=== PATIENT | female | born 1990 | race Caucasian/White ===

== ENCOUNTER 2021-02-17 13:32 | Outpatient (CLI) | payer OTHER, SELFPAY ==
--- NOTE | ~2021-02-17 | US_ITS ---
EXAMINATION: US OB transvaginal DATE: 02/17/2021 13:55 INDICATION: Gestational dating TECHNIQUE: Real-time transabdominal and transvaginal obstetric ultrasound. FINDINGS: Comparison to ultrasound dated 09/14/2019 The uterus measures 9.2 x 5.4 x 5.8 cm. There is an intrauterine gestational sac, with pole mikel ntified. The crown rump length measures 0.36 cm, which correlates with a estimated gestational age o f 6 weeks 0 days. heart tones are identified measuring 122 BPM. The ovaries are within normal limits without significant solid or cystic mass. No free fluid in the pelvis. IMPRESSION: 1. SL IUP with an EGA of 6 weeks, 0 days (EDC by current ultrasound of 10/13/2021). Reviewed, dictated and finalized at location B. IMPRESSION: 1. SL IUP with an EGA of 6 weeks, 0 days (EDC by current ultrasound of 10/13/19 22).
== END 2021-02-17 13:33 ==
LOC: MICIMG 13:33
PROVIDERS: PCP Physician Assistant; Visit Provider Obstetrics & Gynecology
DX: Z36.87 Encounter for antenatal screening for uncertain dates (principal); Z3A.01 Less than 8 weeks gestation of pregnancy
CPT/HCPCS: 76817

== ENCOUNTER 2021-03-04 17:39 | Emergency (ER) | payer OTHER, SELFPAY ==
[2021-03-04 17:42] VITALS: BP 135/76; PULSE 94; RESP 18; TEMP 36.6; O2SAT 99
[2021-03-04 17:58] LABS: Basophils Percent Auto 0.4 % (0.2-1.2); Eosinophils Absolute Auto 0.2 K/mm3 (0-0.3); Eosinophils Percent Auto 1.5 % (0-4.4); Hematocrit 38.5 % (37.0-47.0); Hemoglobin 12.5 g/dL (12.0-15.0); Immature Granulocyte Absolute 0.06 K/mm3 (0.00-0.031); Immature Granulocyte Percent A 0.5 % (0-0.5); Lymphocytes Absolute Auto 1.66 K/mm3 (0.9-3.2); Lymphocytes Percent Auto 15.2 % (18.3-44.2); Mean Corpuscular HGB Conc 32.5 g/dl (32-36); Mean Corpuscular Hemoglobin 25.9 pg (26-34); Mean Corpuscular Volume 79.9 fl (80-100); Mean Platelet Volume 10.2 fl (7.4-10.4); Monocytes Absolute Auto 0.6 K/mm3 (0.1-0.6); Monocytes Percent Auto 5.6 % (2.6-8.5); Neutrophils Absolute Auto 8.4 K/mm3 (1.3-6.7); Neutrophils Percent Auto 76.8 % (45.5-73.1); Platelet Count Result 206 k/mm3 (150-375); Red Blood Count 4.82 M/mm3 (4.2-5.4); Red Cell Distribution Width 15.8 % (11.5-14.5); White Blood Count 10.9 K/mm3 (4.5-10.0)
--- NOTE | 2021-03-04 19:43 | ED.PREGNANCY ---
HPI - General Chief complaint: ASSISTANT CENTER DIRECTOR Stated complaint: 8weeks preg, bleeding Time Seen by Provider: 03/04/21 19:10 History of Present Illness HPI Narrative: 30 yo female presents to the ED for vaginal bleeding. She is approximately 8 weeks . She has experienced light vaginal bleeding today. At first light spotting then noted a samll amount of blood in the toilet. Seems to have stopped at this time. No tissue or clots. She has had this previously in this . She is a patient of Dr. Majano. No pain, discharge, dysuria. Review of Systems Review of Systems: All systems reviewed & are unremarkable except as noted in HPI and below Constitutional: Constitutional: Denies fever(s) Cardiovascular: Cardiovascular: Denies chest pain Respiratory: Respiratory: Denies dyspnea Gastrointestinal: Gastrointestinal: Denies abdominal pain Genitourinary: Genitourinary: Denies dysuria and Denies vaginal discharge Neurologic: Reports system reviewed and no additional complaints, except as documented [facility] Social History Social History (Updated 03/10/21 @ 15:37 by Eduardo Sims MD) Smoking status: Never smoker Exam Const: General: healthy appearing, no acute distress and alert Orientation/consciousness: patient oriented x3 HENMT: Head: normal to inspection Neck: Neck: normal visual inspection Resp: Effort & Inspection: normal respiratory effort Auscultation: clear to auscultation bilaterally, no rales, no rhonchi and no wheezes Cardio: Jugular venous distension: no JVD Rate: regular rate Rhythm: regular rhythm Heart sounds: no murmurs GI: Inspection: non-distended GI Palp: Yes Soft to palpation and No Tenderness to palpation present (GI) Skin: General skin exam: normal color Neuro: General: patient oriented x3 and moves all extremities Speech: normal speech Extrem: General: normal to inspection Psych: Appearance: well kempt Affect: normal affect Course Vital Signs Vital signs: Vital Signs Temperature 36.6 C 03/04/21 17:42 Pulse Rate 94 03/04/21 17:42 Respiratory Rate 18 03/04/21 17:42 Blood Pressure 135/76 03/04/21 17:42 Pulse Oximetry 99 03/04/21 17:42 Temperature 36.8 C 03/04/21 21:19 Pulse Rate 79 03/04/21 21:19 Respiratory Rate 18 03/04/21 21:19 Blood Pressure 121/70 03/04/21 21:19 Pulse Oximetry 99 03/04/21 21:19 Procedures Other Procedure Procedure 1: Other Procedure: Bedside Ultrasound Grossly normal 8 week FHR 172 MDM - OB/Uterine Contractions MDM Narrative Medical decision making narrative: Grossly normal US. Bleeding minimal. Dr. Majano contacted and will see the patient in follow-up Medical Records Attestation: I reviewed the patient's medical records. Lab Data Attestation: I reviewed the patient's lab results. Result diagrams: 03/04/21 17:51 Labs: Lab Results 03/04/21 03/04/21 03/04/21 Range/Units 17:51 17:51 17:51 WBC 10.9 H (4.5-10.0) K/mm3 RBC 4.82 (4.2-5.4) M/mm3 Hgb 12.5 (12.0-15.0) g/dL Hct 38.5 (37.0-47.0) % MCV 79.9 L (80-100) fl MCH 25.9 L (26-34) pg MCHC 32.5 (32-36) g/dl RDW 15.8 H (11.5-14.5) % Plt Count 206 (150-375) k/mm3 MPV 10.2 (7.4-10.4) fl Immature Gran % (Auto) 0.5 (0-0.5) % Neut % (Auto) 76.8 H (45.5-73.1) % Lymph % (Auto) 15.2 L (18.3-44.2) % [place] % (Auto) 5.6 (2.6-8.5) % Eos % (Auto) 1.5 (0-4.4) % Baso % (Auto) 0.4 (0.2-1.2) % Lymph # (Auto) 1.66 (0.9-3.2) K/mm3 [place] # (Auto) 0.6 (0.1-0.6) K/mm3 Eos # (Auto) 0.2 (0-0.3) K/mm3 Baso # (Auto) 0.0 (0.0-0.1) K/mm3 Abs Immat Gran (auto) 0.06 H (0.00-0.031) K/mm3 Absolute Neuts (auto) 8.4 H (1.3-6.7) K/mm3 Absolute Nucleated RBC 0.0 (0.0-0.012) K/mm3 Nucleated RBC % 0.0 (0.0-0.2) % Beta HCG, Quant 23910.00 mIU/ML Blood Type O Positive Antibody Screen Negative Screen TNP B
[2021-03-04 20:01] VITALS: BP 127/74; PULSE 81; RESP 25
[2021-03-04 21:19] VITALS: BP 121/70; PULSE 79; RESP 18; TEMP 36.8; O2SAT 99
== END 2021-03-04 21:15 | disposition home or self-care (01) ==
PROVIDERS: Physician Assistant; Emergency Provider Emergency Medicine; PCP Physician Assistant
DX: O20.9 Hemorrhage in early pregnancy, unspecified (principal); Z3A.08 8 weeks gestation of pregnancy
CPT/HCPCS: 36415; 84702; 85025; 85461; 99284

== ENCOUNTER → 2021-03-09 14:59 | Outpatient (CLI) | payer OTHER, SELFPAY ==
--- NOTE | ~2021-03-09 | US_ITS ---
EXAMINATION: US OB <= 14 weeks fetus DATE: 03/09/2021 15:23 INDICATION: Spotting during first trimester TECHNIQUE: Real-time pelvic transabdominal and transvaginal ultrasound was performed. COMPARISON: 02/17/2021 FINDINGS: The uterus measures 11.5 x 7 x 6.9 cm. There is an intrauterine gestational sac. There is a 15 mm x 3 mm x 8 mm hypoechoic area adjacent to the posterior aspect of the gestational sac. A yolk sac is identified. heart motion is identified measuring 179 beats per minute (bpm) by M-mode D oppler. The crown rump length measures 2.5 cm , which correlates with an estimated gestational age of 9 weeks and 1 day(s) (+/-) 6 day(s). The left ovary is not visualized however no left adnexal abnormality is seen. The right ovary measure s 2.9 x 2.4 x 2.5 cm. There is normal vascular flow in the right ovary. There is no free fluid in the pelvis. IMPRESSION: 1. Live intrauterine with an estimated gestational age of 9 weeks and 1 day(s) (+/-) 6 day( s) and an estimated delivery date of 10/11/2021. 2. Small subchorionic hemorrhage. Reviewed, dictated and finalized at location B. IMPRESSION: 1. Live intrauterine with an estimated gestational age of 9 weeks and 1 day(s) (+/-) 6 day(s) and an estimated delivery date of 10/11/2021. 2. Small subchorionic hemorrhage.
== END ==
PROVIDERS: Visit Provider Obstetrics & Gynecology
DX: O26.851 Spotting complicating pregnancy, first trimester (principal); Z3A.09 9 weeks gestation of pregnancy
CPT/HCPCS: 76801

== ENCOUNTER 2021-04-06 14:37 | Outpatient (CLI) | payer OTHER, SELFPAY ==
--- NOTE | ~2021-04-06 | US_ITS ---
EXAMINATION: US OB <= 14 weeks fetus DATE: 04/06/2021 14:56 INDICATION: Subchorionic hematoma, first trimester TECHNIQUE: Real-time pelvic transabdominal and transvaginal ultrasound was performed. COMPARISON: 03/09/2021 FINDINGS: The uterus measures 12.8 x 9 x 10.1 cm. There is an intrauterine gestational sac. No persi stent subchorionic hematoma is identified. heart motion is identified measuring 161 beats per m inute (bpm) by M-mode Doppler. The crown rump length measures 7.1 cm , which correlates with an estimated gestational age of 13 weeks and 2 day(s) (+/-) 8 day(s). The ovaries are not visualized however no adnexal abnormality is seen. There is no free fluid in the pelvis. IMPRESSION: 1. Live intrauterine with an estimated gestational age of 13 weeks and 2 day(s) (+/-) 8 day (s) and an estimated delivery date of 10/10/2021. 2. No subchorionic hematoma identified. Reviewed, dictated and finalized at location A. IMPRESSION: 1. Live intrauterine with an estimated gestational age of 13 weeks an d 2 day(s) (+/-) 8 day(s) and an estimated delivery date of 10/10/2021. 2. No subchorionic hematoma identified.
== END 2021-04-06 14:38 ==
LOC: MICIMG 14:38
PROVIDERS: Visit Provider Obstetrics & Gynecology
DX: O36.8910 Maternal care for other specified fetal problems, first trimester, not applicable or unspecified (principal); Z3A.00 Weeks of gestation of pregnancy not specified
CPT/HCPCS: 76801

== ENCOUNTER 2021-05-16 16:00 | Outpatient (CLI) | payer OTHER, SELFPAY ==
--- NOTE | ~2021-05-16 | US_ITS ---
EXAMINATION: US OB /maternal detail DATE: 05/16/2021 16:42 INDICATION: survey TECHNIQUE: Multiple obstetric sonographic images performed. FINDINGS: Comparison to multiple prior studies sequentially, with oldest reviewed study dated 2020. There is a single living fetus in vertex presentation. The placenta is anterior without placenta pre via. Placental margin is 7.2 cm to the cervix. Amniotic fluid volume is subjectively normal. cardiac activity and movement is noted with a heart rate of 143 beats per minute. The following anatomy was identified as normal: 4 chamber heart 3 vessel cord cord insertion kidneys urinary bladder stomach spine diaphragm ventricles cisterna magna cerebellum The following biometric data were obtained: BPD: 44mm corresponds to gestational age 19 weeks 3 days. Head circumference: 163 mm corresponds to gestational age 19 weeks 0 days. Abdominal circumference: 136 mm corresponds to gestational age 19 weeks 1 days. Femur length: 28 mm corresponds to gestational age 18 weeks 4 days. Head circumference to abdominal circumference ratio: 1.2 (normal range for expected gestational age i s 1.09-1.26). Estimated weight: 262 grams +/- 39 grams using Hadlock method. IMPRESSION: 1: Single living intrauterine with an estimated gestational age of 18weeks 6days by initial ultrasound measurements, with an EDC of 10/11/2021 in vertex presentation. 2. Normal survey. Reviewed, dictated and finalized at location A. IMPRESSION: 1: Single living intrauterine with an estimated gestational age of 18 weeks 6days by initial ultrasound measurements, with an EDC of 10/11/2021 in ve rtex presentation. 2. Normal survey.
== END 2021-05-16 16:01 ==
PROVIDERS: Visit Provider Obstetrics & Gynecology Gynecology
DX: Z36.89 Encounter for other specified antenatal screening (principal); Z3A.18 18 weeks gestation of pregnancy
CPT/HCPCS: 76805

== ENCOUNTER 2021-08-09 12:13 | Observation (INO) | payer OTHER, SELFPAY ==
[2021-08-09] VITALS (7 sets, daily range): BP systolic 105–113; BP diastolic 60–65; PULSE 92–101; BMI 35.6
--- NOTE | 2021-08-09 12:13 | OBADM ---
This patient, Zakia Laughlin, admitted to the OB room OB Post 112 for observation. Patient/family oriented to hospital policies and general routines including ID bracelet, bed and alarms, visiting hours, pain management, procedures, bathroom and other care routines, personal items, smoking policy, room service/diet, and visiting hours. Patient/Family are encouraged to report perceived risks to care and to ask questions if they do not understand what they are told or what they should do.
[2021-08-09 14:12] LABS: Add Urine Microscopic? YES; Appearance Urine Cloudy (Clear); Bacteria Urine Trace /hpf; Bilirubin Urine Negative (Negative); Blood Urine 2+ (Negative); Color Urine Yellow (Yellow); Glucose Urine UA Negative (Negative); Ketones Urine Negative (Negative); Leukocyte Esterase Ur 3+ LEU/UL (NEGATIVE); Mucus Urine Rare /lpf; Nitrate Urine Negative (Negative); Protein Urine Negative (Negative); RBC Urine 21-50 /hpf (0-2); Specific Grav Ur 1.014 (1.001-1.035); Squamous Epithelial Cell Urine Many /hpf (Few); Urobilinogen Urine Negative mg/dL (<2.0); WBC Clumps Urine Present /HPF; WBC Urine >75 /hpf (0-3)
[2021-08-09 15:40] LABS: Fetal Fibronectin Positive
[2021-08-09] MEDS: TERBUTALINE SULFATE 1 MG/ML VIAL 0.25 MG SUB-Q (17:01)
[2021-08-09] MEDS: cefTRIAXone 1 GM VIAL IM (17:24)
--- NOTE | 2021-08-18 13:05 | P.PNOB_ITS ---
OB - Triage/Final Diagnosis Visit Information Comments/Additional reasons for admission: I have assessed the risk for this patient, Zakia Laughlin, and determined that she would benefit from observation care. Evaluation Laboratory results: Laboratory Tests 08/09/21 08/09/21 13:40 14:59 Urine Color Yellow Urine Appearance Cloudy H Urine pH 5.0 Ur Specific [place] 1.014 Urine Protein Negative Urine Glucose (UA) Negative Urine Ketones Negative Ur Blood (Man) 2+ H Urine Nitrate Negative Urine Bilirubin Negative Urine Urobilinogen Negative Ur Leukocyte Esterase 3+ H Urine RBC 21-50 H Urine WBC >75 H Urine WBC Clumps Present H Ur Squamous Epith Cells Many H Urine Bacteria Trace Urine Mucus Rare Fibronectin Positive Final Diagnosis (1) contractions: Code(s): O47.00 - False labor before 37 completed weeks of gestation, unspecified trimester Status: Acute
== END 2021-08-09 18:38 | disposition home or self-care (01) ==
PROVIDERS: Admitting Provider Obstetrics & Gynecology; Visit Provider Obstetrics & Gynecology
DX: O47.03 False labor before 37 completed weeks of gestation, third trimester (principal); Z3A.31 31 weeks gestation of pregnancy
CPT/HCPCS: 81001; 82731; 87086; 96372; A9270; G0378; G0379; J0696; J3105

== ENCOUNTER 2021-08-31 15:36 | Outpatient (RCR) | payer OTHER, SELFPAY ==
[2021-08-31 16:07] VITALS: BP 107/60; PULSE 90
== END 2021-10-13 20:54 | disposition home or self-care (01) ==
LOC: ANHOBOP 15:36
PROVIDERS: Visit Provider Obstetrics & Gynecology Gynecology
DX: O24.419 Gestational diabetes mellitus in pregnancy, unspecified control (principal); Z3A.34 34 weeks gestation of pregnancy
CPT/HCPCS: 59025

== ENCOUNTER 2021-09-04 20:39 | Observation (INO) | payer OTHER, SELFPAY ==
[2021-09-04] VITALS (11 sets, daily range): BP systolic 102–115; BP diastolic 59–72; PULSE 82–101; RESP 16; TEMP 37.1; O2SAT 97
--- NOTE | 2021-09-04 21:29 | OBADM ---
This patient, Zakia Laughlin, admitted to the OB room OB Post 117 for observation. Patient reports possible leaking of fluids and contractions. Patient/family oriented to hospital policies and general routines including ID bracelet, bed and alarms, visiting hours, pain management, procedures, bathroom and other care routines, personal items, smoking policy, room service/diet, and visiting hours. Patient/Family are encouraged to report perceived risks to care and to ask questions if they do not understand what they are told or what they should do.
--- NOTE | 2021-09-07 08:53 | PM.OBTRLD ---
OB - Triage/Final Diagnosis Visit Information Comments/Additional reasons for admission: I have assessed the risk for this patient, Zakia Laughlin, and determined that she would benefit from observation care. Final Diagnosis (1) contractions: Code(s): O47.00 - False labor before 37 completed weeks of gestation, unspecified trimester Status: Acute
== END 2021-09-04 23:45 | disposition home or self-care (01) ==
PROVIDERS: Admitting Provider Obstetrics & Gynecology; PCP Physician Assistant; Visit Provider Obstetrics & Gynecology
DX: O47.03 False labor before 37 completed weeks of gestation, third trimester (principal); Z3A.35 35 weeks gestation of pregnancy
CPT/HCPCS: G0378; G0379

== ENCOUNTER 2021-10-02 05:53 | Inpatient (IN) | payer OTHER, SELFPAY ==
[2021-10-02] VITALS (96 sets, daily range): BP systolic 77–137; BP diastolic 44–87; PULSE 81–115; RESP 16; TEMP 36.3–37.1; O2SAT 95–100; BMI 35.3
--- NOTE | 2021-10-02 06:31 | LDADM ---
This patient, Zakia Laughlin, was admitted to Labor/Delivery/Recovery 107 on 10/02/21 at 05:53. Plans for labor, pain management and were discussed with patient. Patient/family oriented to hospital policies and general routines including ID bracelet, bed and alarms, visiting hours, pain management, procedures, bathroom and other care routines, personal items, smoking policy, room service/diet and guest tray routines, security routines, and visiting hours. Patient/Family are encouraged to report perceived risks to care and to ask questions if they do not understand what they are told or what they should do. See OBIX for further documentation.
[2021-10-02 06:44] LABS: Glucose Point of Care 139 mg/dl (65-105)
[2021-10-02] MEDS: LACTATED RINGERS 1,000 ML 125 ML IV CONT ×2 (06:49→10:06)
[2021-10-02] MEDS: OXYTOCIN 30 UNITS/NS 500 ML 30 UNITS/500 ML BAG IV CONT (06:49)
[2021-10-02 06:50] LABS: Basophils Absolute Auto 0.1 K/mm3 (0.0-0.1); Basophils Percent Auto 0.6 % (0.2-1.2); Eosinophils Absolute Auto 0.1 K/mm3 (0-0.3); Hematocrit 33.8 % (37.0-47.0); Hemoglobin 10.7 g/dL (12.0-15.0); Immature Granulocyte Absolute 0.21 K/mm3 (0.00-0.031); Immature Granulocyte Percent A 1.8 % (0-0.5); Lymphocytes Absolute Auto 1.39 K/mm3 (0.9-3.2); Lymphocytes Percent Auto 12.2 % (18.3-44.2); Mean Corpuscular HGB Conc 31.7 g/dl (32-36); Mean Corpuscular Hemoglobin 25.2 pg (26-34); Mean Corpuscular Volume 79.5 fl (80-100); Mean Platelet Volume 10.4 fl (7.4-10.4); Monocytes Absolute Auto 0.7 K/mm3 (0.1-0.6); Monocytes Percent Auto 6.3 % (2.6-8.5); Neutrophils Absolute Auto 8.9 K/mm3 (1.3-6.7); Neutrophils Percent Auto 78.1 % (45.5-73.1); Platelet Count Result 167 k/mm3 (150-375); Red Blood Count 4.25 M/mm3 (4.2-5.4); Red Cell Distribution Width 16.1 % (11.5-14.5); White Blood Count 11.4 K/mm3 (4.5-10.0)
--- NOTE | 2021-10-02 09:02 | WPDANESEPP ---
Anes - Eval Pre Procedure Procedure: labor epidural Date/Time: 10/02/21 09:02 Surgeon: norman Pre Op Diagnosis: IOL Patient Data Age: 31 Gender: F Height: 1.8 m Weight: 115 kg Last Vital Signs Temp 37.0 C 10/02/21 07:00 Pulse 103 H 10/02/21 08:31 BP 129/74 10/02/21 08:31 Allergies Allergy/AdvReac Type Severity Reaction Status Date / Time No Known Allergies Allergy Verified 08/09/21 15:00 Home Medications Medication Instructions Recorded Confirmed Type Humulin N NPH U-100 Insulin 62 unit SUBCUT HS 08/31/21 10/02/21 History PNV cmb#95-ferrous fumarate-FA 1 tablet PO HS 08/31/21 09/14/21 History [] Laboratory Tests 10/02/21 10/02/21 10/02/21 06:33 06:38 06:39 WBC 11.4 K/mm3 H K/mm3 (4.5-10.0) RBC 4.25 M/mm3 M/mm3 (4.2-5.4) Hgb 10.7 g/dL L g/dL (12.0-15.0) Hct 33.8 % L % (37.0-47.0) MCV 79.5 fl L fl (80-100) MCH 25.2 pg L pg (26-34) MCHC 31.7 g/dl L g/dl (32-36) RDW 16.1 % H % (11.5-14.5) Plt Count 167 k/mm3 k/mm3 (150-375) MPV 10.4 fl fl (7.4-10.4) Immature Gran % (Auto) 1.8 % H % (0-0.5) Neut % (Auto) 78.1 % H % (45.5-73.1) Lymph % (Auto) 12.2 % L % (18.3-44.2) [place] % (Auto) 6.3 % % (2.6-8.5) Eos % (Auto) 1.0 % % (0-4.4) Baso % (Auto) 0.6 % % (0.2-1.2) Lymph # (Auto) 1.39 K/mm3 K/mm3 (0.9-3.2) [place] # (Auto) 0.7 K/mm3 H K/mm3 (0.1-0.6) Eos # (Auto) 0.1 K/mm3 K/mm3 (0-0.3) Baso # (Auto) 0.1 K/mm3 K/mm3 (0.0-0.1) Abs Immat Gran (auto) 0.21 K/mm3 H K/mm3 (0.00-0.031) Absolute Neuts (auto) 8.9 K/mm3 H K/mm3 (1.3-6.7) Absolute Nucleated RBC 0.0 K/mm3 K/mm3 (0.0-0.012) Nucleated RBC % 0.0 % % (0.0-0.2) POC Capillary Glucose 139 mg/dl H mg/dl (65-105) RPR Pending Blood Type Antibody Screen 10/02/21 06:39 WBC RBC Hgb Hct MCV MCH MCHC RDW Plt Count MPV Immature Gran % (Auto) Neut % (Auto) Lymph % (Auto) [place] % (Auto) Eos % (Auto) Baso % (Auto) Lymph # (Auto) [place] # (Auto) Eos # (Auto) Baso # (Auto) Abs Immat Gran (auto) Absolute Neuts (auto) Absolute Nucleated RBC Nucleated RBC % POC Capillary Glucose RPR Blood Type O Positive Antibody Screen Negative Patient hx anesthesia problems: none Family hx anesthesia problems: none Results Review: All pre-operative results and documents have been reviewed as part of the pre-operative evaluation. [facility] Past Medical History Medical History (Updated 08/18/21 @ 13:05 by Michael Majano MD) contractions Family History Family History (Updated 09/14/21 @ 12:05 by Yara Hicks RN) Father Diabetes mellitus Mother Diabetes mellitus Social History Social History (Updated 03/10/21 @ 15:37 by Eduardo Sims MD) Smoking status: Former smoker Substance use: never Spiritual care concerns: No Exam Day of Procedure 10/02/21 09:02
--- NOTE | 2021-10-02 10:02 | WPDOBADMIT ---
Obstetrics - Admit Note Admission Note: record reviewed. No pertinent additions to the history and/or any subsequent changes in the physical findings that are not consistent with the expected course of the were found. Additions to the history and/or subsequent changes in the physical findings follow. Here for MIL. Cervix 4/80/-2 AROM with clear fluid
[2021-10-02 10:05] LABS: Glucose Point of Care 73 mg/dl (65-105)
[2021-10-02 10:55] LABS: Rapid Plasma Reagin Non-Reactive (NonReactive)
--- NOTE | 2021-10-02 13:58 | PM.OBPRVD ---
OB - Delivery Note Procedure Delivery date: 10/02/21 Procedure: events: Gestational Diabetes and Labor Induction Intrapartal events: None Induction method: AROM and per pitocin protocol Delivery monitor: external FHT and internal uterine Route of delivery: Laceration Description: Periurethral Delivery repair: vicryl (4-0) Specimen: No Quantitative Blood Loss (ml): 100 Anesthesia type: Epidural Disposition: floor Baby Date of : 10/02/21 Weeks of gestation at delivery: 39 gender: Female Weight (pounds): 7 Weight (ounces): 3 presentation: vertex position: Right Occiput Anterior Placenta delivery description: Spontaneous cord vessel description: 3 Vessels and Nuchal Cord score one minute: 9 score five minutes: 9
--- NOTE | 2021-10-02 13:59 | PM.OBDSVD ---
DS: Admitting Diagnosis Discharge Date 10/03/21 Admitting Diagnosis MIL for GDMA2 at 39 wks DS: Discharge Diagnosis Discharge Diagnosis (1) (normal spontaneous vaginal delivery): Code(s): O80 - Encounter for full-term uncomplicated delivery Status: Acute OB - DS: Summary OB Procedures : NST and Ultrasound OB Procedures Intrapartum: Spontaneous Vag Delivery OB Procedures: : None Peripartum Data Infant Delivery Method: Natural Vaginal Laceration Description: Periurethral complications: none Status at Discharge Functional status at discharge: independent ambulation Overall status at discharge: patient is progressing back to baseline Time Spent with Patient Time attestation: Total time spent providing and/or coordinating discharge services: DS: Data Data Completed and Pending Labs on day of discharge: Labs from last 24 hours 10/02/21 10/02/21 10/02/21 10:03 06:39 06:39 WBC RBC Hgb Hct MCV MCH MCHC RDW Plt Count MPV Immature Gran % (Auto) Neut % (Auto) Lymph % (Auto) [place] % (Auto) Eos % (Auto) Baso % (Auto) Lymph # (Auto) [place] # (Auto) Eos # (Auto) Baso # (Auto) Abs Immat Gran (auto) Absolute Neuts (auto) Absolute Nucleated RBC Nucleated RBC % POC Capillary Glucose 73 RPR Non-reactive Blood Type O Positive Antibody Screen Negative 10/02/21 10/02/21 06:38 06:33 WBC 11.4 H RBC 4.25 Hgb 10.7 L Hct 33.8 L MCV 79.5 L MCH 25.2 L MCHC 31.7 L RDW 16.1 H Plt Count 167 MPV 10.4 Immature Gran % (Auto) 1.8 H Neut % (Auto) 78.1 H Lymph % (Auto) 12.2 L [place] % (Auto) 6.3 Eos % (Auto) 1.0 Baso % (Auto) 0.6 Lymph # (Auto) 1.39 [place] # (Auto) 0.7 H Eos # (Auto) 0.1 Baso # (Auto) 0.1 Abs Immat Gran (auto) 0.21 H Absolute Neuts (auto) 8.9 H Absolute Nucleated RBC 0.0 Nucleated RBC % 0.0 POC Capillary Glucose 139 H RPR Blood Type Antibody Screen Discharge Plan Discharge Attending physician on discharge: Tere Wagonerarging Clinician: Tere Wagoner Anticipated Discharge Date/Time: 10/03/21 14:00 Patient Disposition: Home, Self-Care Activity: may shower and pelvic rest Diet: regular Patient Instructions: Antibiotic Form Stand Alone Forms: General Discharge Information Follow-up/Referrals: Tere Wagoner MD [Physician] - 6 Weeks Discharge Medications: Continued PNV cmb#95-ferrous fumarate-FA [] 28 mg iron- 800 mcg Tablet 1 tablet PO HS RF: 0 Discontinued Humulin N NPH U-100 Insulin 100 unit/mL Suspension 62 unit SUBCUT HS RF: 0 Date of admission: 10/02/21 05:53 Primary Care Provider: Araceli,José Robb Admitting Provider: Tere Wagoner Attending physician on admission: Tere Wagoner Condition: Stable Care Plan Goals: for control plans condoms until 's vasectomy done
[2021-10-02] MEDS: OXYTOCIN 30 UNITS/NS 500 ML 30 UNITS/500 ML BAG 125 UNITS IV CONT (14:21)
[2021-10-02] MEDS: WITCH HAZEL 40 PADS 1 PAD TOPICAL (16:06)
--- NOTE | 2021-10-02 16:25 | OBPPTRN ---
Patient transferred to post room #284 via wheelchair. Support person present. Oriented to unit, room, information board, rooming in, admission packet and security measures. Patient verbalizes understanding. with patient.
[2021-10-02] MEDS: IBUPROFEN SUSPENSION 200 MG/10 ML UDC 600 MG PO (17:06)
[2021-10-03] MEDS: IBUPROFEN SUSPENSION 200 MG/10 ML UDC 600 MG PO ×3 (00:03→15:23)
[2021-10-03] MEDS: ACETAMINOPHEN ELIXIR 325 MG/10.15 ML UDC 650 MG PO ×2 (03:36→11:55)
[2021-10-03 03:45] VITALS: BP 103/60; PULSE 80; RESP 16; TEMP 36.6; O2SAT 97
[2021-10-03 05:17] LABS: Hematocrit 31.2 % (37.0-47.0)
--- NOTE | 2021-10-03 07:20 | PM.OBPNVD ---
OB - PN: Subj Subjective Date/time seen: 10/03/21 07:20 Patient comments: no complaints and pain well controlled baby status: doing well OB - PN: Obj Data Labs CBC & Chem 7: 10/03/21 03:49 Labs: Laboratory Results - last 24 hr 10/02/21 10/02/21 10/02/21 06:39 06:39 10:03 Hgb Hct POC Capillary Glucose 73 RPR Non-reactive Blood Type O Positive Antibody Screen Negative 10/03/21 03:49 Hgb 10.0 L Hct 31.2 L POC Capillary Glucose RPR Blood Type Antibody Screen OB - PN A/P Plan day: 1 Plan: routine care, discharge home, follow up 6 weeks and other (plans condoms until vasectomy) Time Spent With Patient Time: Total time spent is greater than 50% in coordination of care (as documented) at patient's floor/unit and/or counseling patient: Exam : Bimanual exam- vagina & uterus: other (Uterus firm, nt @U)
[2021-10-03] MEDS: DOCUSATE SODIUM LIQ 100 MG/10 ML UDC PO (07:22)
[2021-10-03 08:10] VITALS: BP 96/43; PULSE 75; RESP 16; TEMP 36.2; O2SAT 99
--- NOTE | 2021-10-03 09:41 | WPDANLDPN2 ---
Anes-Prog Note L&D Date/Time: 10/03/21 09:41 Comfortable throughout: labor and delivery Neuraxial method: epidural Epidural/Spinal procedure site: clean & non-tender Neuro status: Neuro function grossly intact. Cardiovascular status: normal Respiratory status: normal Airway patency: baseline Mental status: baseline Post-Op hydration status: normal Vital Signs: Last Vital Signs Temp 36.2 C L 10/03/21 08:10 Pulse 75 10/03/21 08:10 Resp 16 10/03/21 08:10 BP 96/43 L 10/03/21 08:10 Pulse Ox 99 10/03/21 08:10 Pain score (VAS): 0 Post-procedural complaints: none Patient feedback: Patient satisfied with anesthetic care.
--- NOTE | 2021-10-03 09:58 | PC.NURSE ---
0805 - Introductions were made and mother led the discussion of her desires to feeding her baby. Reviewed handwashing to prevent infection before and after taking care of her baby. Mother verbalizes she is able to independently latch infant but has had difficult with this last feeding. Discussed how to watch for early feeding cues, place skin to skin, then feeding baby when infant is ready or every 2-3 hours. Reviewed positioning/alignment with the use of the mom and baby guide. Encouraged mother with skin to skin/to the breast to the left breast in side-lying position using nipple to nose with asymmetrical 140-degree latch. She denies any nipple discomfort. Reviewed there is to be no pain with , how to detach from the breast, visuals to watch for to confirm effective . Reviewed effective latching with resources tool/handout/mom and baby guide. Nipple tenderness from previous latches is relieved with improving positioning and effective latching. Use of warm, wet compress to nipples and air dry for improved comfort. was able to maintain effective latch. Mother is feeding as needed to meet requirements. Mother has verbalized understanding watching for feeding cues or waking techniques to feed infant. Mother voiced understanding to feed when she sees feeding cues, 8-12 times in 24 hours approximately every 2-3 hours from the start of the last feeding or she has discomfort with nursing. Reported to primary RN.
[2021-10-03 13:43] VITALS: BP 101/55; PULSE 88; RESP 16; TEMP 37; O2SAT 97
[2021-10-04 12:52] VITALS: BP 124/61; PULSE 68; RESP 20; TEMP 36.9; O2SAT 100
== END 2021-10-03 16:14 | disposition home or self-care (01) | DRG 807 ==
LOC: ANHLDR 14:00 → ANHOB2 16:26
PROVIDERS: Admitting Provider Obstetrics & Gynecology Gynecology; PCP Physician Assistant; Visit Provider Obstetrics & Gynecology Gynecology
DX: O24.429 Gestational diabetes mellitus in childbirth, unspecified control (principal); Z37.0 Single live birth; O71.82 Other specified trauma to perineum and vulva; O69.81X0 Labor and delivery complicated by cord around neck, without compression, not applicable or unspecified; O76 Abnormality in fetal heart rate and rhythm complicating labor and delivery; Z3A.39 39 weeks gestation of pregnancy
CPT/HCPCS: 36415; 82948; 85014; 85018; 85025; 86592; 86850; 86900; 86901; A9270; J2590; J2795; J7120

== ENCOUNTER 2024-04-01 18:47 | Emergency (ER) | payer OTHER, SELFPAY ==
--- NOTE | 2024-04-01 18:52 | ED.ABDPAIN ---
HPI - Abdominal Pain General Chief Complaint: Abdominal Pain Stated Complaint: R LOWER ABD PAIN Time Seen by Provider: 04/01/24 19:00 Source: patient and RN notes reviewed Mode of arrival: ambulatory Limitations: no limitations History of Present Illness HPI narrative: 34-year-old female presents with concern for right lower quadrant abdominal pain that started today. She reports nausea without vomiting. Reports normal bowel movements. Reports her last menstrual period was 3 weeks ago. She reports pain is exacerbated when she lays on her left side. She reports she has to put pressure on the area to ease the pain. She denies fever MD elicited complaint: abdominal pain Related Data Home Medications Medication Instructions Recorded Confirmed vit no.95-ferrous 1 tablet PO HS 08/31/21 09/14/21 fumarate 28 mg-folic acid 800 mcg tablet () Allergies Allergy/AdvReac Type Severity Reaction Status Date / Time No Known Allergies Allergy Verified 04/01/24 19:09 Review of Systems Review of Systems: CONSTITUTIONAL: Denies malaise, chills, sweats, or fever. GASTROINTESTINAL: Reports right lower quadrant abdominal pain, nausea. Denies vomiting, diarrhea, bloody, or mucous stools. GENITOURINARY: Denies dysuria or hematuria. MUSCULOSKELETAL: Denies myalgia. All systems reviewed & are unremarkable except as noted in HPI and below PMFSH Past Medical History Medical History (Updated 04/01/24 @ 19:12 by Hina Branch NP) contractions Family History Family History (Updated 09/14/21 @ 12:05 by Yara Hicks, ROSA) Father Diabetes mellitus Mother Diabetes mellitus Social History Social History (Updated 03/10/21 @ 15:37 by Eduardo Sims MD) Smoking status: Former smoker Substance use: never Spiritual care concerns: No Comments At time of signature, agree with nursing past medical, surgical, social and family history. There is no relevant family history pertinent to the presenting complaint Exam Narrative: GENERAL: Appears uncomfortable and in no acute distress. HEAD: Normocephalic, atraumatic. EYES: PERRLA, conjunctivae clear ENT: Nares clear. Mucous membranes moist. NECK: Supple. No lymphadenopathy CHEST: Speaks in full sentences. No respiratory distress. HEART: Regular rate and rhythm. ABDOMEN: Soft, obese, nondistended, right lower quadrant tenderness with guarding SKIN: Warm, dry, no rash. NEURO: Alert and oriented x3. PSYCH: Normal mood and affect Course Course Emergency Course: Patient is aware of, understands and agrees to be transferred to the emergency. Patient agrees to proceed directly to the emergency department. Portions of this record may have been created with voice recognition software Level of Care: Express Care Visit Vital Signs Vital signs: Reviewed. Transfer Transfered to: [place] Transportation: Other (Private vehicle) Transfer rationale: Abdominal pain Accepting physician: Dr Xiong MDM - Abdominal Pain MDM Narrative Medical decision making narrative: Patient's symptoms and exam warrant further evaluation in the emergency room Differential Diagnosis Differential diagnosis: Likely abdominal pain, acute appendicitis, constipation and diverticulitis Critical Care Time Critical Care Time Critical Care Time: No Discharge Plan Discharge Clinical Impression: Abdominal pain, right lower quadrant Patient Disposition: Acute Care Hospital Condition: Stable Prescriptions: No Action PNV cmb#95-ferrous fumarate-FA [] 28 mg iron- 800 mcg Tablet 1 tablet PO HS Follow-up/Referrals: Avril,Payton Sloan APRN [Primary Care Provider] - Time of Disposition: 19:12
[2024-04-01 18:55] VITALS: BP 114/83; PULSE 136; RESP 16; TEMP 36.8; O2SAT 100
== END 2024-04-01 19:14 | disposition short-term general hospital (02) ==
PROVIDERS: Emergency Provider Nurse Practitioner; PCP Nurse Practitioner Family
DX: R10.31 Right lower quadrant pain (principal); Z87.891 Personal history of nicotine dependence
CPT/HCPCS: 99212; G0463

== ENCOUNTER 2024-04-01 19:37 | Emergency (ER) | payer OTHER, SELFPAY ==
[2024-04-01] VITALS (8 sets, daily range): BP systolic 112–144; BP diastolic 70–86; PULSE 118–136; RESP 14–20; TEMP 36.8–38.7; O2SAT 99–100
--- NOTE | ~2024-04-01 | US_ITS ---
EXAMINATION: US pelvic complete DATE: 04/01/2024 22:14 INDICATION: RLQ pain, neg CT, r/o torison TECHNIQUE: Multiple transabdominal and endovaginal sonographic images of the pelvis were obtained. COMPARISON: CT abdomen pelvis, same date FINDINGS: Uterus: 9.7 x 4.7 x 5.8 cm. Endometrial complex measures 7 mm. Right Ovary: 4.6 x 2.3 x 3.0 cm. Vascular flow is present. 2 cm simple cyst or dominant follicle. Left Ovary: 3.4 x 1.4 x 2.3 cm. Vascular flow is present. No adnexal mass. There is no free fluid in the pelvis. IMPRESSION: Normal pelvic sonogram findings. Reviewed, dictated and finalized at location K.
--- NOTE | ~2024-04-01 | CT_ITS ---
EXAMINATION: CT abdomen pelvis w con DATE: 04/01/2024 21:15 INDICATION: RUQ pain nausea TECHNIQUE: Computed tomography (CT) of the abdomen and pelvis was performed with 100 mL Omnipaque-350 intravenous contrast. Automated exposure control and iterative reconstruction technique were employe d. The dose-length product was 1415.34 mGy-cm. COMPARISON: None. FINDINGS: Lower thorax: Unremarkable Liver: Enlarged. Biliary/Gallbladder: Gallbladder is normal. No bile duct dilation. Pancreas: No mass or duct dilation. Spleen: Enlarged. Adrenals:No mass. Kidneys: No suspicious mass, obstructing stone, or hydronephrosis. GI tract: No small or large bowel dilation. Normal appendix. Mesentery/Peritoneum: No ascites, mass, or free air. Retroperitoneum: No mass. Pelvis: Pelvic organs are within normal limits. Soft Tissues: Soft tissues and body wall unremarkable. Bones: No acute osseous finding. IMPRESSION: Hepatosplenomegaly. Otherwise unremarkable CT abdomen and pelvis findings. Reviewed, dictated and finalized at location K.
--- NOTE | 2024-04-01 19:50 | ECG_ITS ---
Test Date: 2024-04-01 19:53:57 Measurements Intervals [place] Rate: 141 P: 56 IA: 139 QRS: 25 QRSD: 78 T: 58 QT: 328 QTc: 503 Interpretive Statements SINUS TACHYCARDIA LOW QRS VOLTAGE IN PRECORDIAL LEADS NONSPECIFIC ST & T-WAVE ABNORMALITY- DIFFUSE LEADS BASELINE ARTIFACT- I, II, III, AVR, AVL, AVF, V1-V2, V4 ABNORMAL ECG No previous ECG available for comparison Electronically Signed On 04-02-2024 06:02:31 CDT by Raymundo Porter D.O.
--- NOTE | 2024-04-01 20:15 | PC.NURSE ---
patient last ate at 1530 this afternoon
[2024-04-01 20:48] LABS: Basophils Percent Auto 0.4 % (0.2-1.2); Eosinophils Absolute Auto 0.1 K/mm3 (0-0.3); Eosinophils Percent Auto 1.1 % (0-4.4); Hematocrit 37.6 % (37.0-47.0); Hemoglobin 11.6 g/dL (12.0-15.0); Immature Granulocyte Absolute 0.03 K/mm3 (0.00-0.031); Immature Granulocyte Percent A 0.4 % (0-0.5); Lymphocytes Absolute Auto 0.73 K/mm3 (0.9-3.2); Lymphocytes Percent Auto 8.6 % (18.3-44.2); Mean Corpuscular HGB Conc 30.9 g/dl (32-36); Mean Corpuscular Hemoglobin 23.1 pg (26-34); Mean Corpuscular Volume 74.9 fl (80-100); Mean Platelet Volume 10.3 fl (7.4-10.4); Monocytes Absolute Auto 0.4 K/mm3 (0.1-0.6); Monocytes Percent Auto 5.2 % (2.6-8.5); Neutrophils Absolute Auto 7.1 K/mm3 (1.3-6.7); Neutrophils Percent Auto 84.3 % (45.5-73.1); Platelet Count Result 229 k/mm3 (150-375); Red Blood Count 5.02 M/mm3 (4.2-5.4); Red Cell Distribution Width 17.2 % (11.5-14.5); White Blood Count 8.5 K/mm3 (4.5-10.0)
--- NOTE | 2024-04-01 20:50 | ED.ABDPAIN ---
HPI - Abdominal Pain General Chief Complaint: Abdominal Pain Stated Complaint: RLQ Time Seen by Provider: 04/01/24 20:21 Source: patient Mode of arrival: ambulatory Limitations: no limitations History of Present Illness HPI narrative: Patient is a 34-year-old female who presents the ED with report of right sided abdominal pain. Patient reported pain began suddenly around noon this afternoon. States it has progressively worsened since then. Present in upper and lower quadrants. Has never had pain like this before. No radiation of pain. Has not taken anything for the pain. Reports nausea, denies vomiting, diarrhea, constipation, fevers, dysuria, hematuria. No history of kidney stones. She does still have a gallbladder. No aggravation with eating today. Related Data Home Medications Medication Instructions Recorded Confirmed vit no.95-ferrous 1 tablet PO HS 08/31/21 09/14/21 fumarate 28 mg-folic acid 800 mcg tablet () Allergies Allergy/AdvReac Type Severity Reaction Status Date / Time phentermine Allergy Hives Verified 04/01/24 19:38 Review of Systems Review of Systems: CONSTITUTIONAL: Denies fever, chills, or sweats. GASTROINTESTINAL: See HPI. GENITOURINARY: Denies dysuria or hematuria. MUSCULOSKELETAL: Denies back pain, extremity pain, myalgia. All systems reviewed & are unremarkable except as noted in HPI and below PMFSH Past Medical History Medical History contractions Family History Family History Father Diabetes mellitus Mother Diabetes mellitus Social History Social History Smoking status: Former smoker Substance use: never Spiritual care concerns: No Exam Narrative: GENERAL: Uncomfortable appearing, obese with BMI of 34.9, in moderate acute distress due to pain. HEAD: Normocephalic, atraumatic. RESPIRATORY: Airway patent, respirations nonlabored. Clear to auscultation bilaterally, no rales, rhonchi, wheezing. CARDIOVASCULAR: Tachycardic with regular rhythm without murmurs, rubs, or gallops. ABDOMINAL: Soft, moderate focal tenderness in RUQ, R mid abdomen, mild diffuse tenderness throughout remainder of abdomen. Nondistended. Normoactive BS. MUSCULOSKELETAL: Moves all extremities. No gross deformities. SKIN: Warm, dry, normal color. NEURO: A&O X3. Speech clear. PSYCHIATRIC: Anxious, tearful. Normal interaction. Course Vital Signs Vital signs: Vital Signs Temperature 98.2 F 04/01/24 19:49 Pulse Rate 136 H 04/01/24 19:49 Respiratory Rate 20 04/01/24 19:49 Blood Pressure 116/77 04/01/24 19:49 Pulse Oximetry 99 04/01/24 19:49 Oxygen Delivery Room Air 04/01/24 19:49 Temperature 100 F H 04/01/24 23:00 Pulse Rate 104 H 04/02/24 01:17 Respiratory Rate 16 04/02/24 01:17 Blood Pressure 112/62 04/02/24 01:17 Pulse Oximetry 100 04/02/24 01:17 Oxygen Delivery Room Air 04/01/24 19:49 MDM - Abdominal Pain MDM Narrative Medical decision making narrative: Patient presented to ED with right-sided abdominal pain, sudden onset today. Patient tachycardic upon arrival, uncomfortable appearing, tearful. Afebrile. Vitals are otherwise stable. Basic laboratory studies are unremarkable. No leukocytosis. Minimal anemia. Normal CMP. Normal LFTs and lipase. Lactic acid within normal limits. Urine with possible infection, 1+ leuk esterase, 11-20 white blood cell count, occasional squamous cells, no urine bacteria seen. Sent for culture. Patient denies urinary symptoms. CT scan of abdomen pelvis was obtained and unremarkable, does show hepatosplenomegaly, no other acute findings. Normal gallbladder and appendix. Will obtain ultrasound to further evaluate and rule out torsion/ovarian etiology. Ultrasound unremarkable.
[2024-04-01] MEDS: SODIUM CHLORIDE 0.9% IV 1,000 ML 999 ML IV CONT ×2 (20:51→23:03)
[2024-04-01] MEDS: ONDANSETRON INJ 4 MG/2 ML VIAL IV PUSH (20:51)
[2024-04-01] MEDS: MORPHINE SULFATE (*CRX) 4 MG/ML INJ IV PUSH (20:51)
[2024-04-01 20:57] LABS: BEDSIDEPREGUCG Negative
[2024-04-01 20:58] LABS: Alanine Aminotransferase 19 U/L (6-35); Albumin Level 4.7 g/dL (3.5-5.1); Alkaline Phosphatase 76 U/L (38-126); Anion Gap 12 mmol/L (4-12); Aspartate Amino Transferase 21 U/L (14-36); Bilirubin,Total 0.4 mg/dL (0.2-1.3); Blood Urea Nitrogen 14 mg/dL (7-17); Calcium 9.2 mg/dL (8.4-10.2); Carbon Dioxide 28 mmol/L (22-30); Chloride 98 mmol/L (98-107); Estimated CRCL calculation 120 ml/min; Estimated Glomerular Filt Rate > 60; Glucose 103 mg/dL (65-110); Lipase 40 U/L (23-300); Potassium 3.9 mmol/L (3.4-5.0); Sodium 138 mmol/L (137-145)
[2024-04-01 20:59] LABS: Lactic Acid Reflex 1.1 mmol/L (0.7-2.0)
[2024-04-01 21:04] LABS: Appearance Urine Turbid (Clear); Bacteria Urine None Seen /hpf; Bilirubin Urine Negative (Negative); Blood Urine Negative (Negative); Color Urine Yellow (Yellow); Glucose Urine UA Negative (Negative); Ketones Urine Negative (Negative); Leukocyte Esterase Ur 1+ LEU/UL (Negative); Nitrate Urine Negative (Negative); Non Pathogenic Casts 0-2; Protein Urine Negative (Negative); RBC Urine 0-2 /hpf (0-2); Specific Grav Ur 1.018 (1.001-1.035); Squamous Epithelial Cell Urine Occasional /hpf (Few); Urobilinogen Urine 0.2 mg/dL (<2.0); pH Urine 8.5 (5.0-9.0)
[2024-04-01 21:07] LABS: Anisocytosis 1+; Hypochromasia 1+; Platelet Estimate Adequate (Adequate)
[2024-04-01 21:08] LABS: Schistocytes None Seen
[2024-04-01 21:08] LABS: Add Urine Microscopic? YES
[2024-04-01] MEDS: HYDROmorphone HCL INJ (*CRX) 1 MG/ML SYR 0.5 MG IV PUSH (21:28)
[2024-04-01] MEDS: ACETAMINOPHEN ELIXIR 325 MG/10.15 ML UDC 650 MG PO (23:07)
[2024-04-01 23:32] LABS: D Dimer 0.33 ug/mL (<0.48)
[2024-04-02] MEDS: KETOROLAC 30 MG/ML VIAL (*BKC) IV PUSH (00:10)
[2024-04-02 01:17] VITALS: BP 112/62; PULSE 104; RESP 16; O2SAT 100
== END 2024-04-02 01:41 | disposition home or self-care (01) ==
PROVIDERS: Student in an Organized Health Care Education/Training Program; Emergency Provider Physician Assistant; PCP Nurse Practitioner Family
DX: N30.00 Acute cystitis without hematuria (principal); N83.201 Unspecified ovarian cyst, right side; R50.9 Fever, unspecified; E66.9 Obesity, unspecified; Z68.34 Body mass index [BMI] 34.0-34.9, adult; Z87.891 Personal history of nicotine dependence; R16.2 Hepatomegaly with splenomegaly, not elsewhere classified; R00.0 Tachycardia, unspecified; R94.31 Abnormal electrocardiogram [ECG] [EKG]
CPT/HCPCS: 36415; 74177; 76856; 80053; 81001; 81025; 83605; 83690; 85025; 85380; 87086; 87088; 93005; 96361; 96365; 96374; 96375; 99284; A9270; J0696; J1170; J1885; J2270; J2405; J7030; Q9967

== ENCOUNTER 2024-07-09 10:32 | Outpatient (CLI) | payer OTHER, SELFPAY ==
--- NOTE | ~2024-07-09 | US_ITS ---
US pelvic complete Ordering provider: Tere Wagoner MD History: . Right ovarian cyst . Comparison: None. Technique: Transabdominal ultrasound of the pelvis (Doppler ultrasound interrogation techniques used as needed for this exam.) FINDINGS: CERVIX: Normal. UTERUS: Measures 9.4x 4.2x 6.1 cm in length which is within normal limits and is anteverted. No myom etrial masses. ENDOMETRIUM: Normal in thickness measuring 5 mm. (Note: the premenopausal endometrium may measure up to 16 mm when in the secretory phase.) No endometrial masses, cysts or fluid. CUL DE SAC: No free fluid. RIGHT OVARY: Normal in size measuring 3.6x 1.9x 2.6 cm. Normal echotexture. Doppler vascular flow pre sent. Follicles are seen. LEFT OVARY: Normal in size measuring 2.7x 1.6x 2.2 cm. Normal echotexture. Doppler vascular flow pres ent. Follicles are noted. ADNEXA: Normal. No mass. IMPRESSION: normal pelvic ultrasound. Reviewed, dictated and finalized at location A. IMPRESSION: normal pelvic ultrasound.
== END 2024-07-09 10:33 | disposition home or self-care (01) ==
LOC: MICIMG 10:33
PROVIDERS: PCP Obstetrics & Gynecology Gynecology; Visit Provider Obstetrics & Gynecology Gynecology
DX: N83.201 Unspecified ovarian cyst, right side (principal)
CPT/HCPCS: 76856